=== PATIENT | male | born 1995 | race American Indian/Alaskan Native ===

== ENCOUNTER 2017-03-22 05:19 | Emergency (ER) | payer SELFPAY ==
[2017-03-22 05:35] VITALS: BP 131/88
== END 2017-03-22 07:31 | disposition left against medical advice (07) ==
LOC: ED 05:19
DX: M25.562 Pain in left knee (principal); Z53.21 Procedure and treatment not carried out due to patient leaving prior to being seen by health care provider

== ENCOUNTER 2019-08-06 14:34 | Emergency (ER) | payer SELFPAY ==
[2019-08-06 14:41] VITALS: BP 126/89
--- NOTE | 2019-08-06 15:35 | Event Note ---
ED Screening Note Date of service: 08/06/19 Time: 15:31 ED Screening Note: Reports nosebleeds started 3 days ago . 1s day 4 x, 2nd day 5 time and today times,. Tday caame out in clots. reports dizziness and blurred vision and VENCES 4 weeks prior. Bleeding from left nostrils. denies head or facial trauma. Fever on/off. Nasal congestion and runnynose. This initial assessment/diagnostic orders/clinical plan/treatment(s) is/are subject to change based on patients health status, clinical progression and re- assessment by fellow clinical providers in the ED. Further treatment and workup at subsequent clinical providers discretion. Patient/guardian urged not to elope from the ED as their condition may be serious if not clinically assessed and managed. Initial orders include: labs/diagnostic
[2019-08-06 16:04] LABS: Basophils # (Auto) 0.1 K/mm3 (0.0-0.1); Basophils % (Auto) 0.8 % (0.0-1.8); Eosinophils # (Auto) 0.3 K/mm3 (0.0-0.4); Eosinophils % (Auto) 4.8 % (0.0-4.3); Hematocrit 44.6 % (35.5-45.6); Hemoglobin 14.4 gm/dl (11.8-15.2); Lymphocytes # (Auto) 1.4 K/mm3 (1.2-5.4); Lymphocytes % (Auto) 22.7 % (13.4-35.0); Mean Corpuscular HGB Conc 32 % (32-34); Mean Corpuscular Volume 73 fl (84-94); Monocytes # (Auto) 0.6 K/mm3 (0.0-0.8); Monocytes % (Auto) 9.9 % (0.0-7.3); Platelet Count 154 K/mm3 (140-440); Red Cell Distribution Width 14.4 % (13.2-15.2)
[2019-08-06 16:19] LABS: BUN/Creatinine Ratio 23; Blood Urea Nitrogen 16 mg/dL (9-20); Hemolysis Index 52
--- NOTE | 2019-08-06 17:03 | Cat Scan Report ---
CT BRAIN: 08/06/2019 INDICATION / CLINICAL INFORMATION: dizziness, VENCES, blurred vision and left nose bleed. COMPARISON: None available. FINDINGS: BRAIN/INTRACRANIAL STRUCTURES: Unenhanced CT images of the brain demonstrate no evidence of acute int racranial abnormality. Ventricles and sulci are normal in size and shape. There is no evidence of hemorrhage or mass. There are no abnormal extra-axial fluid collections. EXTRACRANIAL STRUCTURES: Unremarkable. IMPRESSION: Negative unenhanced CT of the brain. All CT scans at this location are performed using dose reduction to ALARA by means of automated expos ure control. Signer Name: Trevon Shetty MD Signed: 08/06/2019 4:59 PM Workstation Name: [id number]
[2019-08-06 19:00] LABS: INR 1.11 (0.87-1.13)
[2019-08-06 19:02] LABS: Partial Thromboplastin Time 31.3 Sec. (24.2-36.6)
--- NOTE | 2019-08-06 19:14 | Emergency Department Report ---
ED ENT HPI - General Chief complaint: Nosebleed Stated complaint: LFT NOSE BLEEDING Time Seen by Provider: 08/06/19 15:23 Source: patient Mode of arrival: Ambulatory Limitations: No Limitations - History of Present Illness Initial comments: This is a 23-year-old male with no other prior medical history who presents to ED complaining of left nostril nosebleed for the past 2 days. Patient states initial episode began 2 days ago and stopped within 1 minute. Patient states she had another episode yesterday which stopped within a minute. he states he had started episode today stopped after a minute or so. Patient states that he has not been taking any medications. Patient states that he does work outside at a [employer] and is outside for a long period of days. Patient states she also holds for [employer] which involves him being outside for prolonged hours. Patient denies any trauma falls or injury. At this time patient states that he does not have a nosebleed and bleeding has resolved prior to arrival. Patient presents to be evaluated. Patient does admit that he his left nose or stuffy past week or so. She denies fevers/chills/nausea vomiting or any other problems. MD complaint: epistaxis (left nose) -: days(s) (3) Location: nose (left) Severity: mild Severity scale (0 -10): 1 Context-Epistaxis: other (dry heat exposure) - Related Data Previous Rx's Medication Instructions Recorded Last Taken Type Fluticasone [Flonase] 1 spray NS QDAY #1 bottle 08/06/19 Unknown Rx Loratadine [Claritin] 10 mg PO DAILY #30 tablet 08/06/19 Unknown Rx Allergies Allergy/AdvReac Type Severity Reaction Status Date / Time No Known Allergies Allergy Unverified 03/22/17 05:30 ED Dental HPI - General Chief complaint: Nosebleed Stated complaint: LFT NOSE BLEEDING Time Seen by Provider: 08/06/19 15:23 Source: patient Mode of arrival: Ambulatory Limitations: No Limitations - Related Data Previous Rx's Medication Instructions Recorded Last Taken Type Fluticasone [Flonase] 1 spray NS QDAY #1 bottle 08/06/19 Unknown Rx Loratadine [Claritin] 10 mg PO DAILY #30 tablet 08/06/19 Unknown Rx Allergies Allergy/AdvReac Type Severity Reaction Status Date / Time No Known Allergies Allergy Unverified 03/22/17 05:30 ED Review of Systems ROS: Stated complaint: LFT NOSE BLEEDING Other details as noted in HPI Comment: All other systems reviewed and negative ED Past Medical Hx - Past Medical History Previous Medical History?: No - Surgical History Past Surgical History?: Yes Additional Surgical History: left ankle - Social History Smoking Status: Never Smoker Substance Use Type: None - Medications Home Medications: Home Medications Medication Instructions Recorded Confirmed Last Taken Type Fluticasone [Flonase] 1 spray NS QDAY #1 bottle 08/06/19 Unknown Rx Loratadine [Claritin] 10 mg PO DAILY #30 tablet 08/06/19 Unknown Rx ED Physical Exam - General Limitations: No Limitations General appearance: alert, in no apparent distress - Head Head exam: Present: atraumatic, normocephalic - Eye Eye exam: Present: normal appearance - ENT ENT exam: Present: mucous membranes moist, TM's normal bilaterally, other (turbinate pink and moist bilaterally no swelling, no bleeding noted in the nares) - Expanded ENT Exam Expanded Mouth exam: Present: normal external inspection Teeth exam: Present: normal inspection Throat exam: Positive: normal inspection. Negative: tonsillomegaly, tonsillar exudate - Neck Neck exam: Present: normal inspection, full ROM - Respiratory Respiratory exam: Present: normal lung sounds bilaterally. Absent: respiratory distress - Cardiovascular Cardiovascular Exam: Present: regular rate, normal rhythm. Absent: systolic murmur, diastolic murmur, rubs, gallop - GI/Abdominal GI/Abdominal exam: Present: soft, normal bowel sounds - Rectal Rectal exam: Present: deferred - Extremities Exam Extremities exam: Present: normal inspection - Back Exam Back exam: Present: normal inspection - Neurological Exam Neurological exam: Present: alert, oriented X3 - Psychiatric Psychiatric exam: Present: normal affect, normal mood - Skin Skin exam: Present: warm, dry, intact, normal color. Absent: rash ED Course Vital Signs 08/06/19 14:39 Temperature 98.3 F Pulse Rate 60 Respiratory 18 Rate Blood Pressure 126/89 O2 Sat by Pulse 99 Oximetry ED Medical Decision Making - Lab Data Result diagrams: 08/06/19 15:43 08/06/19 15:43 Laboratory Last Values WBC 6.1 K/mm3 (4.5-11.0) 08/06/19 15:43 RBC 6.10 M/mm3 (3.65-5.03) H 08/06/19 15:43 Hgb 14.4 gm/dl (11.8-15.2) 08/06/19 15:43 Hct 44.6 % (35.5-45.6) 08/06/19 15:43 MCV 73 fl (84-94) L 08/06/19 15:43 MCH 24 pg (28-32) L 08/06/19 15:43 MCHC 32 % (32-34) 08/06/19 15:43 RDW 14.4 % (13.2-15.2) 08/06/19 15:43 Plt Count 154 K/mm3 (140-440) 08/06/19 15:43 Lymph % (Auto) 22.7 % (13.4-35.0) 08/06/19 15:43 [place] % (Auto) 9.9 % (0.0-7.3) H 08/06/19 15:43 Eos % (Auto) 4.8 % (0.0-4.3) H 08/06/19 15:43 Baso % (Auto) 0.8 % (0.0-1.8) 08/06/19 15:43 Lymph # 1.4 K/mm3 (1.2-5.4) 08/06/19 15:43 [place] # 0.6 K/mm3 (0.0-0.8) 08/06/19 15:43 Eos # 0.3 K/mm3 (0.0-0.4) 08/06/19 15:43 Baso # 0.1 K/mm3 (0.0-0.1) 08/06/19 15:43 Seg Neutrophils % 61.8 % (40.0-70.0) 08/06/19 15:43 Seg Neutrophils # 3.8 K/mm3 (1.8-7.7) 08/06/19 15:43 PT 14.0 Sec. (12.2-14.9) 08/06/19 18:29 INR 1.11 (0.87-1.13) 08/06/19 18:29 APTT 31.3 Sec. (24.2-36.6) 08/06/19 18:29 Sodium 140 mmol/L (137-145) 08/06/19 15:43 Potassium 4.3 mmol/L (3.6-5.0) 08/06/19 15:43 Chloride 101.2 mmol/L (98-107) 08/06/19 15:43 Carbon Dioxide 28 mmol/L (22-30) 08/06/19 15:43 Anion Gap 15 mmol/L 08/06/19 15:43 BUN 16 mg/dL (9-20) 08/06/19 15:43 Creatinine 0.7 mg/dL (0.8-1.5) L 08/06/19 15:43 Estimated GFR > 60 ml/min 08/06/19 15:43 BUN/Creatinine Ratio 23 % 08/06/19 15:43 Glucose 121 mg/dL (75-100) H 08/06/19 15:43 Calcium 9.0 mg/dL (8.4-10.2) 08/06/19 15:43 - Medical Decision Making 23-year-old male presents with anterior nosebleed is resolved now. Exam shows no bleeding during ED stay. All labs show no acute fatigue normal limits. Patient is not taking any blood t hinners or any medications. Discussed follow-up with primary care physician. Discussed the patient to avoid heat prolonged closure. Discussed hydration and increased 3 times a day because He works outside for long hours. Critical care attestation.: If time is entered above; I have spent that time in minutes in the direct care of this critically ill patient, excluding procedure time. ED Disposition Clinical Impression: Anterior epistaxis Disposition: DC-01 TO HOME OR SELFCARE Is pt being admited?: No Does the pt Need Aspirin: No Condition: Stable Instructions: Epistaxis (ED) Additional Instructions: Make sure to follow up with the primary care physician as discussed. Take all your medications as you've been prescribed. Nature of that use dehydrated throughout the day. Increase hydration to 8-10 glasses per day. If you have any worsening symptoms or develop new symptoms please return to ED immediately. Prescriptions: Loratadine [Claritin] 10 mg PO DAILY #30 tablet Fluticasone [Flonase] 1 spray NS QDAY #1 bottle Referrals: [facility] [Outside] - 3-5 Days [facility] [Outside] - 3-5 Days Forms: Work/School Release Form(ED) Time of Disposition: 19:23
[2019-08-06] MEDS ORDERED: predniSONE 20 MG TAB PO ONE (19:22)
== END 2019-08-06 19:42 | disposition home or self-care (01) ==
LOC: ED 14:34
DX: R04.0 Epistaxis (principal); Z98.890 Other specified postprocedural states; Z79.899 Other long term (current) drug therapy
CPT/HCPCS: 36415; 70450; 80048; 85025; 85610; 85730; 99284